=== PATIENT | female | born 1995 | race Caucasian/White ===

== ENCOUNTER 2022-11-21 19:25 | Emergency (ER) | payer MEDICAID, SELFPAY ==
[2022-11-21] VITALS (8 sets, daily range): BP systolic 124–128; BP diastolic 70–87; PULSE 77–85; RESP 18; TEMP 36.3; O2SAT 97–100
--- NOTE | 2022-11-21 19:55 | ED.NAVMDI ---
HPI - Nausea/Vomiting/Diarrhea General Chief complaint: Nausea/Vomiting Stated complaint: Vomiting since 2 a.m.,Abdominal Pain Time Seen by Provider: 11/21/22 19:52 History of Present Illness HPI Narrative: This 27-year-old female comes in reporting vomiting for the past 18 hours. She denies having any diarrhea. There has been no blood in the vomit. She does not report any fevers but has felt some chills and warmth at times. She is otherwise in good health. She arrives with normal vital signs. Related Data Allergies Allergy/AdvReac Type Severity Reaction Status Date / Time No Known Drug Allergies Allergy Verified 11/21/22 19:34 Review of Systems Status of ROS: Reports: 10 or more systems reviewed and unremarkable except as noted in History and below Narrative: Constitutional: No fevers, no weight gain or loss. Eyes: No discharge. No vision changes. HENT: No congestion, no sore throat, no ear pain. Cardiovascular: No chest pain, no palpitations. Respiratory: No shortness of breath, no wheezes, no cough. Gastrointestinal: No abdominal pain, no diarrhea. Persistent vomiting. Genitourinary: No dysuria, no hematuria. Musculoskeletal: Normal range of motion. Skin: No rashes, no pruritis. Neurological: No dizziness, weakness, sensory change, speech change. Endo/Heme/Allergies: No bruising or bleeding. No polydipsia. Pysch: no suicidality, no anxiety, no insomnia. All other systems reviewed and are negative. Exam Narrative: Exam Narrative: Constitutional: Well-developed, well-nourished, no acute distress. HEENT: Normocephalic, atraumatic. Neck: Normal range of motion. Nontender. Supple. Heart: Regular. No murmurs. Normal rate. Intact distal pulses. Lungs: Clear to auscultation. No chest discomfort. No wheezes, rhonchi, or rales. Abdomen: Normal bowel sounds. Nontender. No rebound tenderness. Genitalia: Deferred. Back: No midline tenderness. Normal range of motion. Extremities: Normal range of motion. No injury. Skin: Intact. No rash. Warm. No erythema or pallor. Neurologic: No altered sensation. No weakness. Alert and oriented. Psychiatric: No suicidality. No anxiety or depression. No insomnia. Nursing notes and vitals signs are reviewed. Const: Vital Signs, click to edit/add: Vital Signs - 24 hr 11/21/22 19:31 11/21/22 20:35 Temperature 97.4 F L Pulse Rate 77 Pulse Rate [Left P ulse Oximeter] 85 Respiratory Rate 18 Blood Pressure [Ri ght Upper Arm] 124/87 Pulse Oximetry 97 98 Oxygen Delivery Me thod Room Air Course Vital Signs Vital signs: Initial Vital Signs Temperature 97.4 F L 11/21/22 19:31 Temperature Source Temporal Artery Scan 11/21/22 19:31 Pulse Rate 85 11/21/22 19:31 Pulse Rhythm 11/21/22 19:31 Respiratory Rate 18 11/21/22 19:31 Blood Pressure 124/87 11/21/22 19:31 Blood Pressure Mean 99 11/21/22 19:31 Blood Pressure Position Sitting 11/21/22 19:31 Pulse Oximetry 97 11/21/22 19:31 Oxygen Delivery Method 11/21/22 19:31 Vital Signs Temperature 97.4 F L 11/21/22 19:31 Pulse Rate 85 11/21/22 19:31 Respiratory Rate 18 11/21/22 19:31 Blood Pressure 124/87 11/21/22 19:31 Pulse Oximetry 97 11/21/22 19:31 Oxygen Delivery Method 11/21/22 19:31 Temperature 97.4 F L 11/21/22 19:31 Pulse Rate 77 11/21/22 20:35 Respiratory Rate 18 11/21/22 19:31 Blood Pressure 124/87 11/21/22 19:31 Pulse Oximetry 98 11/21/22 20:35 Oxygen Delivery Method 11/21/22 19:31 MDM - Nausea/Vomiting/Diarrhea MDM Narrative Medical decision making narrative: This patient comes in with persistent vomiting throughout today. An IV was established where she received a L of normal saline and 4 mg of Zofran intravenously. She no longer has any episodes of vomiting but does still feel some nausea. She received a 2nd dose of Zofran 4 mg. Lab results returned with reassuring findings. This patient is okay to return home. She did receive a prescription for Zofran. Lab Data Labs: Lab Results 11/21/22 11/21/22 Range/Units 20:20 20:20 WBC 7.37 (4.50-11.00) K/uL RBC 4.83 (4.00-5.20) m/uL Hgb 13.9 (12.0-16.0) gm/dL Hct 41.1 (33.0-51.0) % MCV 85 (80-100) fL MCH 29 (26-34) pg MCHC 34 (32-36) gm/dL RDW Coeff of Buck 12.6 (11.5-15.5) % Plt Count 214 (140-440) K/uL Neut % (Auto) 87.7 H (42.0-72.0) % Lymph % (Auto) 4.1 L (20-44) % [place] % (Auto) 7.6 (0.0-11.0) % Eos % (Auto) 0.0 (0.0-7.0) % Baso % (Auto) 0.3 (0.0-3.0) % Neut # (Auto) 6.50 (1.7-7.0) K/uL Lymph # (Auto) 0.30 L (0.90-2.90) K/uL [place] # (Auto) 0.60 (0.00-0.90) K/UL Eos # (Auto) 0.00 (0.00-0.50) K/uL Baso # (Auto) 0.02 (0.00-0.30) K/uL Sodium 139 (135-149) mmol/L Potassium 3.5 L (3.6-5.1) mmol/L Chloride 108 (96-114) mmol/L Carbon Dioxide 24 (20-32) mmol/L BUN 10 (5-24) mg/dL Creatinine 0.7 (0.5-1.5) mg/dL Estimated GFR 122 ml/min Glucose 116 H (60-115) mg/dL Calcium 8.8 (8.4-10.6) mg/dL Discharge Plan Discharge Clinical Impression: Gastroenteritis Patient Disposition: Home, Self-Care Condition: Improved Additional Instructions: Take medication as needed and indicated. Increase diet as tolerated. Follow up with MD or return if worsening. Follow Up/Referrals: Provider,Not a Local [Primary Care Provider] - Stand Alone Forms: [employer] Info Instructions
[2022-11-21] MEDS: 0.9 % SODIUM CHLORIDE 1000 ml 1,000 ML IV (20:25)
[2022-11-21] MEDS: ONDANSETRON 2 MG/ML inj 4 MG IVP ×2 (20:26→21:25)
[2022-11-21 20:31] LABS: Basophils Absolute Auto 0.02 K/uL (0.00-0.30); Basophils Percent Auto 0.3 % (0.0-3.0); Hematocrit 41.1 % (33.0-51.0); Hemoglobin* 13.9 gm/dL (12.0-16.0); Immature Granulocytes Abs Auto 0.02 K/uL (0.00-0.30); Immature Granulocytes Pct Auto 0.3 %; Lymphocytes Percent Auto 4.1 % (20-44); Mean Corpuscular HGB Conc 34 gm/dL (32-36); Mean Corpuscular Hemoglobin 29 pg (26-34); Mean Corpuscular Volume 85 fL (80-100); Monocytes Percent Auto 7.6 % (0.0-11.0); Neutrophils Percent Auto 87.7 % (42.0-72.0); Platelet Count* 214 K/uL (140-440); RDW Coefficient of Variation % 12.6 % (11.5-15.5); Red Blood Count 4.83 m/uL (4.00-5.20); White Blood Count* 7.37 K/uL (4.50-11.00)
[2022-11-21 20:34] LABS: Slide Review Reflex No
[2022-11-21 20:42] LABS: Chloride* 108 mmol/L (96-114); Sodium* 139 mmol/L (135-149)
[2022-11-21 20:43] LABS: Potassium* 3.5 mmol/L (3.6-5.1)
[2022-11-21 20:45] LABS: Carbon Dioxide* 24 mmol/L (20-32); Creatinine* 0.7 mg/dL (0.5-1.5); Estimated Glomerular Filt Rate 122 ml/min
[2022-11-21 20:46] LABS: Blood Urea Nitrogen* 10 mg/dL (5-24); Calcium* 8.8 mg/dL (8.4-10.6); Glucose* 116 mg/dL (60-115)
[2022-11-21] MEDS: KETOROLAC 15 MG/ML inj IVP (21:43)
--- NOTE | 2022-11-21 21:43 | ED.NURSE ---
pt c/o of headache, aware and ordered ketorolac and stated pt can D/C home after receiving mediation. Pt has no other compliants and currently not nausea
== END 2022-11-21 21:52 | disposition home or self-care (01) ==
PROVIDERS: Emergency Provider Emergency Medicine Emergency Medical Services
DX: K52.9 Noninfective gastroenteritis and colitis, unspecified (principal)
CPT/HCPCS: 36415; 80048; 85025; 96361; 96374; 96375; 99284; J1885; J2405; J7030